=== PATIENT | male | born 1990 | race Hispanic/Latino ===

== ENCOUNTER 2017-09-08 07:33 | Emergency (ER) | payer SELFPAY ==
--- NOTE | 2017-09-08 08:13 | ER ---
Nurse's Notes [facility] Name: Sergio Keating Age: 27 yrs Sex: Male : 1990 Arrival Date: 09/08/2017 Time: 07:37 Bed 13 Private MD: None, None Diagnosis: Otalgia, right ear;Unspecified perforation of tympanic membrane, right ear Presentation: 09/08 07:42 Presenting complaint: Patient states: intermittent allyssa ear pain that began 2 days ago. aa5 Pt states "this morning I woke up with blood in my right ear". Pt also reports cough and sore throat. 07:42 Transition of care: patient was not received from another setting of care. Onset of aa5 symptoms was September 2017. Risk Assessment: Do you want to hurt yourself or someone else? Patient reports no desire to harm self or others. Initial Sepsis Screen: Does the patient meet any 2 criteria? No. Patient's initial sepsis screen is negative. Does the patient have a suspected source of infection? No. Patient's initial sepsis screen is negative. Care prior to arrival: None. 07:42 Method Of Arrival: Ambulatory aa5 07:42 Acuity: TORREY 4 aa5 Historical: - Allergies: 07:42 No Known Allergies; aa5 - PMHx: 07:42 None; aa5 - PSHx: 07:42 None; aa5 - Immunization history:: Adult Immunizations up to date. - Social history:: Smoking status: Patient uses tobacco products, denies chronic smoking, but will smoke occasionally. - Ebola Screening: : No symptoms or risks identified at this time. - Family history:: not pertinent. - Hospitalizations: : No recent hospitalization is reported. Screenin:22 Abuse screen: Denies threats or abuse. Denies injuries from another. Nutritional ch screening: No deficits noted. Tuberculosis screening: No symptoms or risk factors identified. Fall Risk None identified. Assessment: 08:22 Reassessment: Patient appears in no apparent distress at this time. Patient and/or ch family updated on plan of care and expected duration. Pain level reassessed. Patient is alert, oriented x 3, equal unlabored respirations, skin warm/dry/pink. General: Appears in no apparent distress. comfortable, Behavior is calm, cooperative, appropriate for age. Pain: Complains of pain in right ear Pain currently is 7 out of 10 on a pain scale. Neuro: No deficits noted. Cardiovascular: No deficits noted. Respiratory: Airway is patent Respiratory effort is even, unlabored, Breath sounds are clear bilaterally. Derm: Skin is pink, warm \\T\\ dry. Vital Signs: 07:45 BP 112 / 55; Pulse 52; Resp 16 S; Temp 97.9(O); Pulse Ox 99% on R/A; Weight 81.65 kg aa5 (R); Height 6 ft. 1 in. (185.42 cm) (R); Pain 0/10; 07:45 Body Mass Index 23.75 (81.65 kg, 185.42 cm) aa5 ED Course: 07:37 Patient arrived in ED. mr 07:39 None, None is Private Physician. mr 07:42 Arm band placed on. aa5 07:42 Patient placed in an exam room, on a stretcher. aa5 07:45 Yony Boland MD is Attending Physician. rn 07:46 Triage completed. aa 08:22 Becky Davis RN is Primary Nurse. ch 08:22 No apparent distress. Resting quietly. ch 08:22 Patient has correct armband on for positive identification. Bed in low position. Call ch light in reach. Side rails up X 1. Adult w/ patient. 08:22 No provider procedures requiring assistance completed. Patient did not have IV access ch during this emergency room visit. Administered Medications: No medications were administered Outcome: 08:13 Discharge ordered by . rn 08:22 Discharged to home ambulatory, with family. 08:22 Condition: stable 08:22 Discharge instructions given to patient, family, Instructed on discharge instructions, follow up and referral plans. Demonstrated understanding of instructions, follow-up care, medications, Prescriptions given X 1. 08:24 Patient left the ED. ch Signatures: Becky Davis, Kirsten Mendoza RN, ch mr Yony Boland MD MD rn Calderon, Audri, RN [facility]
--- NOTE | 2017-09-08 08:13 | EDPHYS ---
Physician Documentation [facility] Name: Sergio Keating Age: 27 yrs Sex: Male : 1990 Arrival Date: 09/08/2017 Time: 07:37 Bed 13 Private MD: None, None ED Physician Yony Boland HPI: 09/08 07:50 This 27 yrs old Male presents to ER via Ambulatory with complaints of Drainage rn From Ear. 07:50 The patient presents with drainage, pain. The complaints affect the right ear. Onset: rn The symptoms/episode began/occurred last night. Modifying factors: The symptoms are alleviated by nothing, the symptoms are aggravated by nothing. Severity of symptoms: At their worst the symptoms were mild in the emergency department the symptoms are unchanged. The patient has not experienced similar symptoms in the past. Reports right ear pain for 2 days, was cleaning ear last night, then noted to have right ear drainage/bleeding, + decreased hearing from that ear. . Historical: - Allergies: 07:42 No Known Allergies; aa5 - PMHx: 07:42 None; aa5 - PSHx: 07:42 None; aa5 - Immunization history:: Adult Immunizations up to date. - Social history:: Smoking status: Patient uses tobacco products, denies chronic smoking, but will smoke occasionally. - Ebola Screening: : No symptoms or risks identified at this time. - Family history:: not pertinent. - Hospitalizations: : No recent hospitalization is reported. ROS: 07:50 Constitutional: Negative for fever, chills, and weight loss, Eyes: Negative for injury, rn pain, redness, and discharge, ENT: + right ear pain Neuro: Negative for headache, weakness, numbness, tingling, and seizure. Exam: 07:50 Constitutional: This is a well developed, well nourished patient who is awake, alert, rn and in no acute distress. Head/Face: Normocephalic, atraumatic. Eyes: Pupils equal round and reactive to light, extra-ocular motions intact. Lids and lashes normal. Conjunctiva and sclera are non-icteric and not injected. Cornea within normal limits. Periorbital areas with no swelling, redness, or edema. ENT: + right ear with dry blood in canal, medial/superior small defect that appears like possible perforation in tympanic membrane Vital Signs: 07:45 BP 112 / 55; Pulse 52; Resp 16 S; Temp 97.9(O); Pulse Ox 99% on R/A; Weight 81.65 kg aa5 (R); Height 6 ft. 1 in. (185.42 cm) (R); Pain 0/10; 07:45 Body Mass Index 23.75 (81.65 kg, 185.42 cm) aa5 MDM: 07:45 Patient medically screened. rn 08:12 Differential diagnosis: otitis media, otitis externa, ruptured TM. Data reviewed: vital rn signs, nurses notes, and as a result, I will discharge patient. Counseling: I had a detailed discussion with the patient and/or guardian regarding: the historical points, exam findings, and any diagnostic results supporting the discharge/admit diagnosis, the need for outpatient follow up, to return to the emergency department if symptoms worsen or persist or if there are any questions or concerns that arise at home. Special discussion: I discussed with the patient/guardian in detail that at this point there is no indication for admission to the hospital. It is understood, however, that if the symptoms persist or worsen the patient needs to return immediately for re-evaluation. Based on the history and exam findings, there is no indication for further emergent testing or inpatient evaluation. I discussed with the patient/guardian the need to see the ENT specialist for further evaluation of the symptoms. Administered Medications: No medications were administered Disposition: 09/08/17 08:13 Discharged to Home. Impression: Otalgia, right ear, Unspecified perforation of tympanic membrane, right ear. - Condition is Stable. - Discharge Instructions: Eardrum Perforation, Earache. - Prescriptions for Augmentin 875- 125 mg Oral Tablet - take 1 tablet by ORAL route every 12 hours for 10 days; 20 tablet. - Medication Reconciliation Form, Thank You Letter, Antibiotic Education, Prescription Opioid Use form. - Work release form (09/08/17 08:29). iw - Follow up: Private Physician; When: As needed; Reason: Recheck today's complaints, Re-evaluation by your physician. - Problem is new. - Symptoms are unchanged. Signatures: Becky Davis RN RN Yony Boland MD MD rn Calderon, Audri, RN RN aa5 Leigh Self RN iw Corrections: (The following items were deleted from the chart) 08:24 08:13 09/08/2017 08:13 Discharged to Home. Impression: Otalgia, right ear; Unspecified ch perforation of tympanic membrane, right ear. Condition is Stable. Forms are Medication Reconciliation Form, Thank You Letter, Antibiotic Education, Prescription Opioid Use. Follow up: Private Physician; When: As needed; Reason: Recheck today's complaints, Re-evaluation by your physician. Problem is new. Symptoms are unchanged. rn
== END 2017-09-08 08:24 | disposition home or self-care (01) ==
LOC: ER 07:33
DX: H72.91 Unspecified perforation of tympanic membrane, right ear (principal); H92.01 Otalgia, right ear; F17.210 Nicotine dependence, cigarettes, uncomplicated
CPT/HCPCS: 99282